=== PATIENT | female | born 1985 | race Caucasian/White ===

== ENCOUNTER 2019-01-24 13:16 | Emergency (ER) | payer OTHER, MEDICAID, SELFPAY ==
[2019-01-24 13:23] VITALS: BP 134/82; PULSE 71; RESP 15; TEMP 36.4; O2SAT 100; BMI 39.9
--- NOTE | 2019-01-24 13:36 | ED_ITS ---
HPI - Extremity Problem <Darcy Branch PA-C - Last Filed: 01/24/19 14:26> General Chief complaint: Extremity Problem,Nontraumatic Stated complaint: Knee issues Time Seen by Provider: 01/24/19 13:20 Source: patient Mode of arrival: ambulatory Limitations: no limitations History of Present Illness HPI Narrative: This 33-year-old female comes ED due to chronic left knee discomfort and pain. She states that it pops when she walks. She states that at times it feels like it gets stuck, and that is painful. She states that she has to ?un- kink? it by rolling onto the side of her thigh. She states that she does tend to sit in awkward positions with her hip and knee flexed and thinks that causes it to lock sometimes. She is not having pain in the hip or ankle. She denies any weakness. She states that this has been going on for years, no history of injury or acute change, just ?got tired of it?. She states that she has not tried any medications for this, did try her mother's knee brace, which seemed to help. She comes here because she has no PCP and felt like this should be evaluated. She does get some swelling at times. Related Data Previous Rx's Medication Instructions Recorded hydrocodone-acetaminophen 0 tab PO Q6HP PRN #15 tab 01/09/17 methocarbamol 500 mg PO QIDP PRN #14 tab 01/09/17 methocarbamol 500 mg PO QIDP PRN #14 tab 01/09/17 prednisone 40 mg PO AMCC 5 Days #0 tab 01/09/17 meloxicam 15 mg PO DAILY #20 tab 01/24/19 Allergies Allergy/AdvReac Type Severity Reaction Status Date / Time No Known Drug Allergies Allergy Verified 01/24/19 13:23 Review of Systems <Darcy Branch PA-C - Last Filed: 01/24/19 14:26> Review of Systems ROS Unobtainable: All systems reviewed & are unremarkable except as noted in HPI and below PFSH <Darcy Branch PA-C - Last Filed: 01/24/19 14:26> Medical History (Updated 01/24/19 @ 14:03 by Darcy Branch PA-C) Chronic cough (Chronic) Chronic knee pain (Chronic) Surgical History (Updated 01/24/19 @ 13:59 by Darcy Branch PA-C) No history of previous surgery (Chronic) Social History Smoking Status: Current every day smoker Social History Smoking Status: Current every day smoker Exam <Darcy Branch PA-C - Last Filed: 01/24/19 14:26> Narrative Exam Narrative: GENERAL APPEARANCE: Patient sitting comfortably, in no distress. LUNGS: Coarse breath sounds, no cough on exam HEART: Rate and rhythm regular without murmur, normal S1 and S2, no S3 or S4. MUSCULOSKELETAL: Left knee there is perhaps trace effusion. No tenderness over the patella or joint line. Full active and passive range of motion but hesitant at endpoints. No obvious laxity, but virus and valgus stress elicit discomfort EXTREMITIES: No edema Initial Vital Signs Initial Vital Signs: Vital Signs Temperature 97.5 F L 01/24/19 13:23 Pulse Rate 71 01/24/19 13:23 Respiratory Rate 15 01/24/19 13:23 Blood Pressure 134/82 01/24/19 13:23 Pulse Oximetry 100 01/24/19 13:23 <Elizabeth Martins DO - Last Filed: 01/25/19 14:55> Initial Vital Signs Initial Vital Signs: Vital Signs Temperature 97.5 F L 01/24/19 13:23 Pulse Rate 71 01/24/19 13:23 Respiratory Rate 15 01/24/19 13:23 Blood Pressure 134/82 01/24/19 13:23 Pulse Oximetry 100 01/24/19 13:23 Course <Darcy Branch PA-C - Last Filed: 01/24/19 14:26> Vital Signs - 8 hr 01/24/19 13:23 Temperature 97.5 F L Pulse Rate 71 Respiratory Rate 15 Blood Pressure 134/82 Pulse Oximetry 100 <Elizabeth Martins DO - Last Filed: 01/25/19 14:55> Vital Signs - 8 hr 01/24/19 13:23 Temperature 97.5 F L Pulse Rate 71 Respiratory Rate 15 Blood Pressure 134/82 Pulse Oximetry 100 Discharge Plan Departure Patient Disposition: Home Clinical Impression: Chronic knee pain Qualifiers: Laterality: left Qualified Code(s): M25.562 - Pain in left knee Discharge Date/Time: 01/24/19 14:14 Interventions: ED Discharge Assessment Last Done: 01/24/19 14:13 Instructions: DI for Knee Pain Activity Restrictions/Additional Instructions: Please wear the knee brace that we gave at all times daytime to help avoid the stress on your knee that seems to make it lock and pop. You can also wear this at night if needed. Try the once daily anti-inflammatory/pain medicine that I prescribed for you called meloxicam. Returned to urgent care or ED if you have any acutely worsening symptoms, otherwise please evaluation with a PCP for follow-up and evaluation of your chronic cough and other issues. You can call the [facility] [place] at [phone] to help with a referral Prescriptions: New meloxicam 15 mg tablet 15 mg PO DAILY Qty: 20 RF: 0 No Action methocarbamol 500 MG tablet 500 mg PO QIDP PRNQty: 14 RF: 0 methocarbamol 500 MG tablet 500 mg PO QIDP PRNQty: 14 RF: 0 hydrocodone-acetaminophen 5 MG/325 MG tablet PO Q6HP PRNQty: 15 RF: 0 prednisone 20 MG tablet 40 mg PO AMCC 5 Days Qty: 0 RF: 0 <Elizabeth Martins DO - Last Filed: 01/25/19 14:55> [facility] Attending Shakir Attestation: I was immediately available in the departm ent for consultation. Documentation has been reviewed. I agree with assessment and plan.
== END 2019-01-24 14:14 | disposition home or self-care (01) ==
PROVIDERS: Emergency Provider Internal Medicine
DX: M25.562 Pain in left knee (principal)
CPT/HCPCS: 99283